=== PATIENT | male | born 1950 | race Caucasian/White ===

== ENCOUNTER → 2022-08-14 | Outpatient (CLI) | payer MEDICARE | END | disposition home or self-care (01) | LOC: SHCH 08:29 → EDUNIT# 08:30 | PROVIDERS: ATTEND Internal Medicine Cardiovascular Disease | DX: Z95.4 Presence of other heart-valve replacement (principal) | CPT/HCPCS: 93306 ==

== ENCOUNTER → 2024-05-23 | Outpatient (CLI) | payer MEDICARE ==
[2024-05-23 16:28] LABS: BASOPHILS # (AUTO) 0.04 K/uL (0.00-0.20); BASOPHILS % (AUTO) 0.6 % (0.0-5.0); EOSINOPHILS # (AUTO) 0.09 K/uL (0.00-0.70); EOSINOPHILS % (AUTO) 1.4 % (0.0-8.0); IMMATURE GRANULOCYTE ABSOLUTE 0.03 K/uL (0-1); LYMPHOCYTES # (AUTO) 2.1 K/uL (1.0-4.8); LYMPHOCYTES % (AUTO) 33.1 % (21.0-51.0); MEAN CORPUSCULAR HEMOGLOBIN 30.9 pg (27.0-33.0); MEAN CORPUSCULAR HGB CONC 34.1 g/dL (32.0-36.0); MEAN CORPUSCULAR VOLUME 90.7 fL (79-99); MONOCYTES # (AUTO) 0.5 K/uL (0.1-1.0); MONOCYTES % (AUTO) 8.7 % (3.0-13.0); NEUTROPHILS # (AUTO) 3.5 K/uL (1.8-7.7); NEUTROPHILS % (AUTO) 55.7 % (40.0-77.0); PLATELET COUNT (AUTO) 176 K/uL (130-400); RED CELL DISTRIBUTION WIDTH 12.3 % (11.0-15.5); WHITE BLOOD COUNT (AUTO) 6.2 K/uL (4.8-10.8)
[2024-05-23 16:44] LABS: ALBUMIN 3.8 g/dL (3.5-5.0); BILIRUBIN,TOTAL 0.6 mg/dL (0.2-1.0); POTASSIUM 3.7 mmol/L (3.5-5.1); TOTAL PROTEIN, SERUM 6.9 g/dL (6.0-8.3)
== END | disposition home or self-care (01) ==
LOC: LAB 11:42
PROVIDERS: ATTEND Internal Medicine Cardiovascular Disease
DX: I25.10 Atherosclerotic heart disease of native coronary artery without angina pectoris (principal); E78.5 Hyperlipidemia, unspecified; Z95.1 Presence of aortocoronary bypass graft
CPT/HCPCS: 36415; 80053; 80061; 84402; 84403; 85025

== ENCOUNTER → 2024-09-15 | Outpatient (CLI) | payer OTHER ==
[~2024-09-15] MED LIST: ACET-66 PO; APIX5TAB PO; CALC500T7 PO; CETI10CA5 PO; EZET10TA48 PO; PRAV20TA4 PO; UBID100C10 PO
== END | disposition home or self-care (01) ==
LOC: SHCH 13:51
PROVIDERS: ATTEND Internal Medicine Cardiovascular Disease
DX: I08.8 Other rheumatic multiple valve diseases (principal); I48.0 Paroxysmal atrial fibrillation
CPT/HCPCS: 93306

== ENCOUNTER 2024-09-25 08:31 | Day surgery (SDC) | payer OTHER ==
[~2024-09-25] VITALS: Ht 177.8 cm; Wt 89.8 kg
[2024-09-25] VITALS (11 sets, daily range): BP systolic 105–132; BP diastolic 60–81; PULSE 48–69; RESP 15–17; TEMP 97.5–98.1
[2024-09-25] MEDS: 0.9%NACL 1000ML 1,000 ML IV ONE (09:51)
[2024-09-25] MEDS ORDERED: proPOFol 10 MG/ML 20ML VIAL IV ONE (10:31)
[2024-09-25] MEDS ORDERED: LIDOCAINE HCL 1% 20 ML VIAL ONE (10:31)
--- NOTE | 2024-09-25 12:23 | NUR ---
Full and complete discharge instructions given to Patient and Family both verbally and in writing. Explained GI procedure precautions and follow up. All questions answered. PIV removed with catheter tip intact. Home with Family W/C to POV.
== END 2024-09-25 12:15 | disposition home or self-care (01) ==
LOC: ENDO 08:31 → DAH 08:31 → ENDO 12:15
PROVIDERS: ATTEND Internal Medicine
DX: K74.60 Unspecified cirrhosis of liver (principal); I85.10 Secondary esophageal varices without bleeding; K44.9 Diaphragmatic hernia without obstruction or gangrene; K31.89 Other diseases of stomach and duodenum; K22.89 Other specified disease of esophagus; K76.6 Portal hypertension; K29.50 Unspecified chronic gastritis without bleeding; I25.10 Atherosclerotic heart disease of native coronary artery without angina pectoris; K21.9 Gastro-esophageal reflux disease without esophagitis; Z95.1 Presence of aortocoronary bypass graft; Z91.013 Allergy to seafood; Z79.01 Long term (current) use of anticoagulants; Z79.899 Other long term (current) drug therapy
CPT/HCPCS: 43239; J7030; J2704; A4620; A4215 ×2; A4223; A4222; A4221; A4663; A4606; J3490

== ENCOUNTER → 2025-04-30 | Outpatient (CLI) | payer OTHER ==
[~2025-04-30] MED LIST changes: -ACET-66 PO; -CALC500T7 PO; -CETI10CA5 PO; -EZET10TA48 PO; +EZET10TA80 PO; +IOHEXOL 350 MG/ML 100ML INFUS..BTL IV ONE; -PRAV20TA4 PO; +PRAV20TA59 PO; -UBID100C10 PO; +UBID100C51 PO
--- NOTE | 2025-05-01 02:46 | HMCIMG ---
EXAM: CT ABDOMEN AND PELVIS W/WO IV CONTRAST CLINICAL HISTORY: Lower abdominal pain. TECHNIQUE: Axial computed tomography images of the abdomen and pelvis without and with intravenous contrast, including acquisition of delayed 7 minutes images. Intravenous, oral contrast and rectal contrast was administered. The protocol utilizes one or more of the following dose reduction techniques: automated exposure control, adjustments of mA and/or kV according to patient size, and/or use of iterative reconstruction technique. Total exam DLP 2145. CONTRAST: 99 mL of intravenous contrast was administered. COMPARISON: A prior contrast swallow and follow through dated 04/25/2025 is available for comparison which demonstrates no evidence of contrast leakage or obstruction. FINDINGS: LOWER CHEST: There are coronary arterial calcifications. Post median sternotomy status. There is bibasilar streaky atelectasis. There is a 4 mm sized solid nodule in the anterior basal segment of the right lower lobe in subpleural location, series 2, image 9/108. There is another perifissural nodule measuring 4 x 3 mm in the inferior lingular segment of the left upper lobe, series 2, image 8/108. No cardiomegaly or pericardial effusion observed. LIVER: There are multiple subcentimetric simple cysts, remaining non-enhancing after intravenous contrast administration and the largest measuring 1.5 x 1 cm in the segment . GALLBLADDER AND BILIARY TREE: The gallbladder is unremarkable. There is no biliary ductal dilatation. PANCREAS: The pancreas is unremarkable. SPLEEN: The spleen is unremarkable. ADRENAL GLANDS: The right adrenal and left adrenal are unremarkable. KIDNEYS AND URETERS: Normal renal size and position. The right kidney is unremarkable. 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 Per consensus, no follow-up is needed for simple Bosniak type 1 and 2 renal cysts, unless the patient has a malignancy history or risk factors. Delayed 7 minutes images demonstrate normal contrast excretion through the both kidneys without hydroureteronephrosis. There is no nephrolithiasis. URINARY BLADDER: Incompletely distended. There is diffuse thickening of the urinary bladder wall, suggestive of sequelae of chronic bladder outflow obstruction. REPRODUCTIVE ORGANS: There is moderate prostatomegaly. No pelvic masses or pelvic ascites. BOWEL: There are extensive colonic diverticula, most severe in the region of the sigmoid colon without vasculitis. The appendix is unremarkable, series 2, image 26 - 41/108. No stomach or bowel distension. No focal inflammatory change observed. LYMPH NODES: Not enlarged mesenteric or retroperitoneal lymph nodes. PERITONEUM: No ascites or free air. No other fluid collection. VESSELS: The abdominal aorta demonstrates atheromatous calcification without aneurysm or dissection. ABDOMINAL WALL: There is a small umbilical hernia containing fat, defect measuring 1 cm in width. BONES: No lytic or blastic abnormality observed. Degenerative changes present in the lumbar spine. IMPRESSION: 1. No acute intra-abdominal or pelvic process. 2. Extensive colonic diverticula, most severe in the sigmoid colon, without diverticulitis. 3. Moderate prostatomegaly with diffuse urinary bladder wall thickening, compatible with chronic bladder outlet obstruction sequelae. 4. Left kidney 0.8 cm hyperdense, partly exophytic lesion without post-contrast enhancement, compatible with Bosniak II renal cyst. As compared with the prior contrast follow through study dated April 25, 2025, there is no interval changes in the normal appearance of the stomach and the proximal small bowel. /[place]
== END | disposition home or self-care (01) ==
LOC: RAH 08:36
PROVIDERS: ATTEND Internal Medicine Gastroenterology
DX: N40.0 Benign prostatic hyperplasia without lower urinary tract symptoms (principal); R10.30 Lower abdominal pain, unspecified; K57.30 Diverticulosis of large intestine without perforation or abscess without bleeding; I25.10 Atherosclerotic heart disease of native coronary artery without angina pectoris; R91.1 Solitary pulmonary nodule; J98.4 Other disorders of lung; K76.89 Other specified diseases of liver; K42.9 Umbilical hernia without obstruction or gangrene; I70.0 Atherosclerosis of aorta; N32.89 Other specified disorders of bladder
CPT/HCPCS: 74178; Q9967